=== PATIENT | female | born 1995 | race Two or more races ===

== ENCOUNTER 2017-02-12 00:08 | Emergency (ER) | payer MEDICAID ==
[2017-02-12 00:18] VITALS: O2SAT 97
[2017-02-12 00:42] LABS: COLOR YELLOW; LEUKOCYTE ESTERASE,URINE NEGATIVE (NEGATIVE); NITRITE,URINE NEGATIVE (NEGATIVE)
[2017-02-12 00:46] LABS: BACTERIA TRACE /hpf (NONE SEEN); RBC,URINE 50-182 /hpf (0-3); WBC,URINE 50-182 /hpf (0-3)
--- NOTE | 2017-02-12 00:48 | EDPHY ---
H & P Stated Complaint: pt 9 wks preg u/s confirmed, after sex vag bleeding passed "something" Time Seen by Provider: 02/12/17 00:27 HPI/ROS: CHIEF COMPLAINT: 9 weeks , vaginal bleeding HISTORY OF PRESENT ILLNESS: 21-year-old female presents emergency department complaining of vaginal bleeding. Patient is 9 weeks confirmed on ultrasound. She was having intercourse with her boyfriend today when afterwards she went to the bathroom and passed a golf ball sized blood clot. Patient reports a mild amount of vaginal bleeding after this which is resolving. She reports no abdominal cramping. No fevers or chills, no nausea or vomiting. Patient denies urinary frequency, urgency or dysuria. Patient reports she had an ultrasound 2 weeks ago as she was having mild vaginal bleeding after intercourse. REVIEW OF SYSTEMS: A comprehensive 10 point review of systems is otherwise negative aside from elements mentioned in the history of present illness. Source: Patient Exam Limitations: No limitations - Personal History EDC: 10/24/16 Current Tetanus Diphtheria and Acellular Pertussis (TDAP): Unsure - Medical/Surgical History Hx Asthma: No Hx Chronic Respiratory Disease: No Hx Diabetes: No Hx Cardiac Disease: No Hx Renal Disease: No Hx Cirrhosis: No Hx Alcoholism: No Hx HIV/AIDS: No Hx Splenectomy or Spleen Trauma: No Other PMH: denies - Social History Smoking Status: Never smoked - Physical Exam Exam: Physical Exam Gen: Alert and Oriented, NAD HEENT: PERRL, moist mucous membranes NECK: no meningismus CV: regular rate and regular rhythm PULM: CTAB, no wheezes ABDOMEN: soft, non tender to palpation, BS present BACK: No CVA tenderness NEURO: Neurologically grossly intact EXTREMITIES: normal appearing SKIN: no rash or break in skin on exposed skin PSYCH: answers questions appropriately. Constitutional: Initial Vital Signs Temperature (C) 36.6 C 02/12/17 00:13 Heart Rate 60 02/12/17 00:13 Respiratory Rate 18 02/12/17 00:13 Blood Pressure 137/74 H 02/12/17 00:13 O2 Sat (%) 97 02/12/17 00:13 O2 Delivery Mode Room Air Allergies/Adverse Reactions: No Known Allergies Allergy (Unverified 02/12/17 00:12) Home Medications: Medication Instructions Recorded Prenatl Vit6/Iron/FA/B12/Ca/D3 02/12/17 Medical Decision Making ED Course/Re-evaluation: IV established, CBC, chemistry panel, quantitative HCG, Rh and ultrasound ordered. Patient is hemodynamically stable, nontoxic appearing, no pain. CBC and chemistry panel are unremarkable, quantitative HCG is 91,000, patient is Rh positive. Ultrasound shows a bicornuate uterus with a viable IUP in the right channel with heart rate 174 measuring 9 weeks 5 days. Patient has a small subchorionic hemorrhage measuring 1.8 cm. Patient will be discharged home , she has an appointment with [facility] in 3 days for re- evaluation. I have recommended the patient follow up with the high-risk nursing home assistant administrator for her by chronic a uterus. She is also aware of the incidental finding that the campus recruiter was unable to find her right kidney. Patient is given strict return precautions for abdominal pain, increased bleeding, new symptoms or concerns. Patient's urinalysis shows 50-182 RBCs, 50-182 WBCs. Patient has no leukocytes , no nitrates. She has no urinary symptoms. Urine culture has been ordered. Differential Diagnosis: Diagnosis considered but not limited to threatened miscarriage, miscarriage, patient menstruation, he infection, urinary tract infection. - Data Points Laboratory Results: Laboratory Results 02/12/17 00:10 02/12/17 00:10 02/12/17 02/12/17 02/12/17 00:36 00:29 00:10 WBC RBC Hgb Hct MCV MCH MCHC RDW Plt Count Sodium 140 mEq/L mEq/L (134-144) Potassium 4.2 mEq/L mEq/L (3.5-5.2) Chloride 110 mEq/L mEq/L (97-110) Carbon Dioxide 17 mEq/l L mEq/l (22-31) Anion Gap 13 mEq/L mEq/L (8-16) BUN 12 mg/dL mg/dL (7-23) Creatinine 0.6 mg/dL mg/dL (0.6-1.0) Estimated GFR > 60 Glucose 93 mg/dL mg/dL (70-100) Calcium 9.5 mg/dL mg/dL (8.5-10.4) Beta HCG, Quant 41785.00 mIU/mL H mIU/mL (0-4.83) Urine Color YELLOW Urine Appearance CLEAR Urine pH 6.0 (5.0-7.5) Ur Specific [place] 1.006 (1.002-1.030) Urine Protein NEGATIVE (NEGATIVE) Urine Ketones NEGATIVE (NEGATIVE) Urine Blood 3+ H (NEGATIVE) Urine Nitrate NEGATIVE (NEGATIVE) Urine Bilirubin NEGATIVE (NEGATIVE) Urine Urobilinogen NEGATIVE EU EU (0.2-1.0) Ur Leukocyte Esterase NEGATIVE (NEGATIVE) Urine RBC 50-182 /hpf H /hpf (0-3) Urine WBC 50-182 /hpf H /hpf (0-3) Ur Epithelial Cells NONE SEEN /lpf /lpf (NONE-1+) Urine Bacteria TRACE /hpf H /hpf (NONE SEEN) Urine Glucose NEGATIVE (NEGATIVE) Patient ABO/Rh B POSITIVE 02/12/17 00:10 WBC 10.29 10^3/uL H 10^3/uL (3.80-9.50) RBC 4.86 10^6/uL 10^6/uL (4.18-5.33) Hgb 13.8 g/dL g/dL (12.6-16.3) Hct 41.1 % % (38.0-47.0) MCV 84.6 fL fL (81.5-99.8) MCH 28.4 pg pg (27.9-34.1) MCHC 33.6 g/dL g/dL (32.4-36.7) RDW 13.0 % % (11.5-15.2) Plt Count 266 10^3/uL 10^3/uL (150-400) Sodium Potassium Chloride Carbon Dioxide Anion Gap BUN Creatinine Estimated GFR Glucose Calcium Beta HCG, Quant Urine Color Urine Appearance Urine pH Ur Specific [place] Urine Protein Urine Ketones Urine Blood Urine Nitrate Urine Bilirubin Urine Urobilinogen Ur Leukocyte Esterase Urine RBC Urine WBC Ur Epithelial Cells Urine Bacteria Urine Glucose Patient ABO/Rh Departure - Departure Disposition: Home, Routine, Self-Care Clinical Impression: Threatened miscarriage, 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 It is recommended you see a high risk OBGYN for your bicornuate uterus. Of note, your right kidney was not visible on ultrasound. Follow up with [facility] for further evaluation of this. Return to the emergency department for an abdominal pain, increased bleeding, other questions or concerns. Referrals: [facility],. [Clinic] - As per Instructions
[2017-02-12 00:50] LABS: HEMATOCRIT 41.1 % (38.0-47.0); HEMOGLOBIN 13.8 g/dL (12.6-16.3); MEAN CELL HEMOGLOBIN 28.4 pg (27.9-34.1); MEAN CELL HEMOGLOBIN CONCENTR. 33.6 g/dL (32.4-36.7); MEAN CELL VOLUME 84.6 fL (81.5-99.8); RED BLOOD CELL COUNT 4.86 10^6/uL (4.18-5.33)
[2017-02-12 01:13] LABS: ANION GAP 13 mEq/L (8-16); CALCIUM 9.5 mg/dL (8.5-10.4); CARBON DIOXIDE 17 mEq/l (22-31); CHLORIDE 110 mEq/L (97-110); CREATININE 0.6 mg/dL (0.6-1.0); GLOMERULAR FILTRATION RATE > 60; GLUCOSE 93 mg/dL (70-100); POTASSIUM 4.2 mEq/L (3.5-5.2); SODIUM 140 mEq/L (134-144)
[2017-02-12 01:16] VITALS: BP 112/61; PULSE 59; RESP 16
[2017-02-12 01:59] VITALS: TEMP 98.1
== END 2017-02-12 02:02 | disposition home or self-care (01) ==
DX: O20.0 Threatened abortion (principal); O34.591 Maternal care for other abnormalities of gravid uterus, first trimester; Z3A.09 9 weeks gestation of pregnancy